=== PATIENT | female | born 1995 | race American Indian/Alaskan Native ===

== ENCOUNTER 2017-08-07 10:26 | Emergency (ER) | payer OTHER ==
[2017-08-07 10:31] VITALS: BMI 27.4
[2017-08-07 10:33] VITALS: TEMP 98
--- NOTE | 2017-08-07 10:44 | C.PDOC ---
History Of Present Illness 22 yr old female presents to the ER with complaints of intermittent back pain for the past 2 days. Patient states the pain is 6/10 and dull to the mid back area. Patient denies trauma, abdominal pain, dysuria, incontinence, weakness or numbness. Time Seen by Provider: 08/07/17 10:38 Chief Complaint (Nursing): Back Pain History Per: Patient History/Exam Limitations: no limitations Onset/Duration Of Symptoms: Days (2) Current Symptoms Are (Timing): Still Present Pain Scale Rating Of: 6 Past Medical History Reviewed: Historical Data, Nursing Documentation, Vital Signs Vital Signs: Last Vital Signs Temp 98 F 08/07/17 10:31 Pulse 78 08/07/17 11:00 Resp 16 08/07/17 11:00 BP 119/78 08/07/17 11:00 Pulse Ox 98 08/07/17 11:00 - Age of Learning Procedures INJECT/INFUSE ELECTROLYT (01/02/14) Family History: States: No Known Family Hx - Social History Hx Tobacco Use: Yes Hx Alcohol Use: No Hx Substance Use: No - Immunization History Hx Tetanus Toxoid Vaccination: No Hx Influenza Vaccination: No Hx Pneumococcal Vaccination: No Review Of Systems Except As Marked, All Systems Reviewed And Found Negative. Gastrointestinal: Negative for: Abdominal Pain Genitourinary: Negative for: Dysuria, Incontinence Musculoskeletal: Positive for: Back Pain Neurological: Negative for: Weakness, Numbness Physical Exam - Physical Exam Appears: Non-toxic, No Acute Distress Skin: Warm, Dry, No Rash Head: Atraumatic, Normacephalic Chest: Symmetrical, No Tenderness Cardiovascular: Rhythm Regular, No Murmur Respiratory: Normal Breath Sounds, No Rales, No Rhonchi, No Stridor, No Wheezing Gastrointestinal/Abdominal: Normal Exam, Soft, No Tenderness, No Guarding, No Rebound Back: Normal Inspection, No CVA Tenderness Extremity: Normal ROM, No Swelling Neurological/Psych: Oriented x3, Normal Speech, Normal Motor ED Course And Treatment O2 Sat by Pulse Oximetry: 100 (RA) Pulse Ox Interpretation: Normal Medical Decision Making Medical Decision Making: PLAN: * Motrin PO * Tylenol PO Disposition Counseled Patient/Family Regarding: Diagnosis, Need For Followup, Rx Given - Disposition Referrals: [facility] [Outside] Disposition: HOME/ ROUTINE Disposition Time: 10:43 Condition: STABLE Prescriptions: Ibuprofen [Motrin] 600 mg PO TID #15 tab Instructions: Back Pain (ED) Forms: General Discharge Instructions, [facility] (Pashto), Work Excuse - POA Present On Arrival: None - Clinical Impression Clinical Impression: Low back pain - Scribe Statement The provider has reviewed the documentation as recorded by the Jackibe Tati Camacho Provider Attestation: All medical record entries made by the Jackibe were at my direction and personally dictated by me. I have reviewed the chart and agree that the record accurately reflects my personal performance of the history, physical exam, medical decision making, and the department course for this patient. I have also personally directed, reviewed, and agree with the discharge instructions and disposition.
[2017-08-07 11:01] VITALS: BP 119/78; PULSE 78; RESP 16
[2017-08-07 13:13] VITALS: O2SAT 100
== END 2017-08-07 11:00 | disposition home or self-care (01) ==
LOC: C.ER 10:26
DX: M54.5 Low back pain (principal)

== ENCOUNTER 2017-12-23 10:08 | Emergency (ER) | payer OTHER ==
[2017-12-23 10:08] VITALS: BMI 27.4
[2017-12-23 10:30] VITALS: RESP 16; TEMP 98
[2017-12-23] MEDS ORDERED: guaiFENesin 100 mg/5 ml Syrup UD PO STA (11:15)
--- NOTE | 2017-12-23 11:16 | C.PDOC ---
History Of Present Illness Jeanne Clarke is a 22 year old female, with no significant past medical history, who presents to the emergency department complaining of cough, nasal congestion, sore throat and body aches onset for x2 days. 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 He denies any shortness of breath, vomiting or diarrhea. No further medical complaints. PMD: None provided. Time Seen by Provider: 12/23/17 11:10 Chief Complaint (Nursing): Cough, Cold, Congestion History Per: Patient History/Exam Limitations: no limitations Onset/Duration Of Symptoms: Days (x2) Current Symptoms Are (Timing): Still Present Sick Contacts (Context): Individual(s) At Work Associated Symptoms: Sore Throat, Cough, Nasal Congestion, Other (body aches) Ear Symptoms: Bilateral: None Past Medical History Reviewed: Historical Data, Nursing Documentation, Vital Signs Vital Signs: Last Vital Signs Temp 98 F 12/23/17 10:26 Pulse 90 12/23/17 10:26 Resp 16 12/23/17 10:26 BP 131/90 12/23/17 10:26 Pulse Ox 98 12/23/17 11:16 - Medical History PMH: No Chronic Diseases Denies: Depression Surgical History: No Surg Hx - [facility] Procedures INJECT/INFUSE ELECTROLYT (01/02/14) Family History: States: Unknown Family Hx - Social History Hx Tobacco Use: Yes Hx Alcohol Use: No Hx Substance Use: No - Immunization History Hx Tetanus Toxoid Vaccination: No Hx Influenza Vaccination: No Hx Pneumococcal Vaccination: No Review Of Systems Constitutional: Positive for: Other (body aches) ENT: Positive for: Nose Congestion, Throat Pain Respiratory: Positive for: Cough. Negative for: Shortness of Breath Gastrointestinal: Negative for: Vomiting, Diarrhea Physical Exam - Physical Exam Appears: Well, No Acute Distress Skin: Normal Color, Warm, Dry Head: Atraumatic, Normacephalic Eye(s): bilateral: Normal Inspection, PERRL, EOMI Ear(s): Bilateral: Normal Nose: Normal Oral Mucosa: Moist Throat: Normal Neck: Normal ROM, Supple Chest: Symmetrical Cardiovascular: Rhythm Regular, No Murmur Respiratory: Normal Breath Sounds, No Wheezing Gastrointestinal/Abdominal: Normal Exam, Soft, No Tenderness, No Guarding, No Rebound Back: Normal Inspection, No CVA Tenderness, No Vertebral Tenderness, No Paraspinal Tenderness Extremity: Normal ROM, No Deformity, No Swelling Neurological/Psych: Oriented x3 Gait: Steady ED Course And Treatment O2 Sat by Pulse Oximetry: 98 (RA) Pulse Ox Interpretation: Normal Medical Decision Making Medical Decision Making: Initial Impression: Influenza Initial Plan: --Motrin tab 600 mg PO --Robitussin 100 mg PO --Tamiflu Cap 75 mg PO --reevaluation typical flu s/s x 2 days start Tamiflu empirically. Disposition Doctor Will See Patient In The: Office Counseled Patient/Family Regarding: Studies Performed, Diagnosis - Disposition Referrals: [facility] [Outside] Disposition: HOME/ ROUTINE Disposition Time: 11:16 Condition: GOOD Additional Instructions: continue Tamiflu 75 mg twice a day for 5 days Continue liberal Dayquil/Nyquil (or equivalent) for symptomatic relief. Remember these symptoms may last 11-14 days No work until afebrile for 24 hours. Prescriptions: Oseltamivir [Tamiflu] 75 mg PO BID #9 cap Instructions: Influenza (ED) Forms: [facility] (Namibian), Work Excuse - Clinical Impression Clinical Impression: Influenza-like illness - Scribe Statement Carlos Perez Provider Attestation: All medical record entries made by the Scribe were at my direction and personally dictated by me. I have reviewed the chart and agree that the record accurately reflects my personal performance of the history, physical exam, medical decision making, and the department course for this patient. I have also personally directed, reviewed, and agree with the discharge instructions and disposition.
[2017-12-23] MEDS ORDERED: guaiFENesin 100 mg/5 ml Syrup UD ONE (11:32)
[2017-12-23 11:41] VITALS: BP 135/84; PULSE 81; O2SAT 97
== END 2017-12-23 11:40 | disposition home or self-care (01) ==
LOC: C.ER 10:08
DX: J11.1 Influenza due to unidentified influenza virus with other respiratory manifestations (principal); Z87.891 Personal history of nicotine dependence

== ENCOUNTER 2018-04-01 23:41 | Emergency (ER) | payer OTHER ==
[2018-04-01 23:41] VITALS: BMI 27.4
[2018-04-02 00:58] LABS: SQUAMOUS EPITHIAL 3 /hpf (0-5); URINE BACTERIA RARE (<OCC); URINE BILIRUBIN NEGATIVE (NEGATIVE); URINE BLOOD 3+ (NEGATIVE); URINE CLARITY Clear (Clear); URINE COLOR Yellow (YELLOW); URINE GLUCOSE (UA) NORMAL (Normal); URINE LEUKOCYTE ESTERASE NEG Leu/uL (Negative); URINE PROTEIN NEGATIVE (NEGATIVE); URINE UROBILINOGEN NORMAL mg/dL (0.2-1.0)
[2018-04-02 00:59] LABS: HCG,QUALITATIVE URINE NEGATIVE (NEGATIVE)
--- NOTE | 2018-04-02 01:18 | C.PDOC ---
History Of Present Illness 22 year old female presents to the ED c/o abdominal pain for the past 4 days. Patient reports she usually has similar pain the first 2 days of her period but this time pain persisted. Patient reports she took 1 Motrin of unknown dosage yesterday and 1 aspirin today with no relief. Patient denies fever, chills, nausea, vomit, dysuria, hematuria, back pain. Time Seen by Provider: 04/02/18 00:23 Chief Complaint (Nursing): Abdominal Pain History Per: Patient History/Exam Limitations: no limitations Onset/Duration Of Symptoms: Days Current Symptoms Are (Timing): Still Present Location Of Pain/Discomfort: Diffuse Radiation Of Pain To:: None Quality Of Discomfort: Cramping Associated Symptoms: denies: Nausea, Vomiting, Diarrhea Exacerbating Factors: None Alleviating Factors: None Recent travel outside of the [place]: No Additional History Per: Patient Abnormal Vaginal Bleeding: No Past Medical History Reviewed: Historical Data, Nursing Documentation, Vital Signs Vital Signs: Last Vital Signs Temp 87.2 F L 04/02/18 01:27 Pulse 81 04/02/18 01:27 Resp 20 04/02/18 01:27 BP 128/70 04/02/18 01:27 Pulse Ox 98 04/02/18 01:27 - Medical History PMH: No Chronic Diseases Denies: Depression Surgical History: No Surg Hx - [facility] Procedures INJECT/INFUSE ELECTROLYT (01/02/14) Family History: States: Unknown Family Hx - Social History Hx Tobacco Use: Yes Hx Alcohol Use: No Hx Substance Use: No - Immunization History Hx Tetanus Toxoid Vaccination: No Hx Influenza Vaccination: No Hx Pneumococcal Vaccination: No Review Of Systems Constitutional: Negative for: Fever, Chills Cardiovascular: Negative for: Chest Pain Respiratory: Negative for: Shortness of Breath Gastrointestinal: Positive for: Abdominal Pain. Negative for: Nausea, Vomiting , Diarrhea Genitourinary: Negative for: Dysuria, Hematuria Musculoskeletal: Negative for: Back Pain Skin: Negative for: Rash Physical Exam - Physical Exam Appears: Non-toxic, No Acute Distress Skin: Normal Color, Warm, Dry Head: Atraumatic, Normacephalic Eye(s): bilateral: Normal Inspection Oral Mucosa: Moist Neck: Normal ROM, Supple Chest: Symmetrical Cardiovascular: Rhythm Regular, No Murmur Respiratory: Normal Breath Sounds, No Rales, No Rhonchi, No Wheezing Gastrointestinal/Abdominal: Soft, No Tenderness, No Guarding, No Rebound Pelvic: Other (Refused) Extremity: Normal ROM, No Tenderness, No Swelling Neurological/Psych: Oriented x3, Normal Speech Gait: Steady ED Course And Treatment O2 Sat by Pulse Oximetry: 100 (ON RA) Pulse Ox Interpretation: Normal Progress Note: Plan: - Motrin 600 mg PO. - UA. - UCG. On reassessment, patient is resting comfortably, and is in no acute distress. Patient was instructed to follow up with physician/clinic in 1-2 days for further evaluation. Disposition Counseled Patient/Family Regarding: Diagnosis, Need For Followup, Rx Given - Disposition [facility] [[facility]] Disposition: HOME/ ROUTINE Disposition Time: 01:16 Condition: STABLE Additional Instructions: Take motrin every 6-8h as needed for pain Follow up with OB/ PART TIME Return to ER if worse Prescriptions: Ibuprofen [Motrin] 600 mg PO Q6H #24 tab Instructions: Menstrual Cramps (DC) Forms: [facility] (Kinyarwanda), Work Excuse - Clinical Impression Clinical Impression: Dysmenorrhea - PA / BARREL W[employer]ER / Resident Statement MD/DO has reviewed & agrees with the documentation as recorded. - Scribe Statement The provider has reviewed the documentation as recorded by the Scribe Valentin Agustin All medical record entries made by the Jackibdavid were at my direction and personally dictated by me. I have reviewed the chart and agree that the record accurately reflects my personal performance of the history, physical exam, medical decision making, and the department course for this patient. I have also personally directed, reviewed, and agree with the discharge instructions and disposition.
[2018-04-02 01:30] VITALS: BP 128/70; PULSE 81; RESP 20; TEMP 87.2
[2018-04-02 01:59] VITALS: O2SAT 100
== END 2018-04-02 01:30 | disposition home or self-care (01) ==
LOC: C.ER 23:41
DX: N94.6 Dysmenorrhea, unspecified (principal); Z72.0 Tobacco use

== ENCOUNTER 2018-07-05 16:23 | Emergency (ER) | payer OTHER ==
[2018-07-05 16:31] VITALS: BMI 28.3
[2018-07-05 16:48] VITALS: BP 119/79; PULSE 100; RESP 20; TEMP 98.6; O2SAT 100
--- NOTE | 2018-07-05 16:56 | C.PDOC ---
History Of Present Illness 23 y/o female presents to ED with c/o having menses since 06/14- 07/03 associated with intermittent headache. Patient reports yesterday she started spotting and today passing clots prompting visit to ED. Patient is sexually active and unsure if . Patient denies abdominal pain, dysuria, back pain, fever, chills or any other complaints at this time. Time Seen by Provider: 07/05/18 16:42 Chief Complaint (Nursing): Female Genitourinary History Per: Patient History/Exam Limitations: no limitations Onset/Duration Of Symptoms: Days Current Symptoms Are (Timing): Still Present Quality Of Discomfort: "Pain" Past Medical History Reviewed: Historical Data, Nursing Documentation, Vital Signs Vital Signs: Last Vital Signs Temp 98.6 F 07/05/18 16:40 Pulse 100 H 07/05/18 16:40 Resp 20 07/05/18 16:40 BP 119/79 07/05/18 16:40 Pulse Ox 100 07/05/18 16:59 - Medical History PMH: No Chronic Diseases Surgical History: No Surg Hx - [facility] Procedures INJECT/INFUSE ELECTROLYT (01/02/14) Family History: States: No Known Family Hx - Social History Hx Tobacco Use: Yes Hx Alcohol Use: No Hx Substance Use: No - Immunization History Hx Tetanus Toxoid Vaccination: No Hx Influenza Vaccination: No Hx Pneumococcal Vaccination: No Review Of Systems Constitutional: Negative for: Fever, Chills Gastrointestinal: Negative for: Nausea, Vomiting, Abdominal Pain Genitourinary: Positive for: Vaginal Bleeding. Negative for: Dysuria Musculoskeletal: Negative for: Back Pain Skin: Negative for: Rash Physical Exam - Physical Exam Appears: Non-toxic, No Acute Distress Skin: Warm, Dry, No Rash Head: Atraumatic, Normacephalic Eye(s): bilateral: Normal Inspection Oral Mucosa: Moist Cardiovascular: Rhythm Regular Respiratory: Normal Breath Sounds, No Rales, No Rhonchi, No Wheezing Gastrointestinal/Abdominal: Soft, No Tenderness, No Guarding, No Rebound Back: No CVA Tenderness Neurological/Psych: Oriented x3, Normal Speech ED Course And Treatment O2 Sat by Pulse Oximetry: 100 (RA) Pulse Ox Interpretation: Normal Disposition - Disposition Referrals: [facility] Rereinaldo, [Non-Staff] - Disposition: HOME/ ROUTINE Disposition Time: 17:30 Condition: GOOD Additional Instructions: DAMEON SAMAYOA, thank you for letting us take care of you today. The emergency medical care you received today was directed at your acute symptoms. If you were prescribed any medication, please fill it and take as directed. It may take several days for your symptoms to resolve. Return to the Emergency Department if your symptoms worsen, do not improve, or if you have any other problems. Please contact your doctor or call one of the physicians/clinics you have been referred to that are listed on the Patient Visit Information form that is included in your discharge packet. Bring any paperwork you were given at discharge with you along with any medications you are taking to your follow up visit. Our treatment cannot replace ongoing medical care by a primary care provider outside of the emergency department. Thank you for allowing the [facility] team to be part of your care today. Follow up with your [facility] [employer] [facility] doctor this week for re-evaluation and further management. Instructions: Absent or Irregular Periods Forms: [facility] (Uzbek) - Clinical Impression Clinical Impression: Dysmenorrhea - Scribe Statement The provider has reviewed the documentation as recorded by the Adore Nunez All medical record entries made by the Adore were at my direction and personally dictated by me. I have reviewed the chart and agree that the record accurately reflects my personal performance of the history, physical exam, medical decision making, and the department course for this patient. I have also personally directed, reviewed, and agree with the discharge instructions and disposition.
[2018-07-05 17:03] LABS: HCG,QUALITATIVE URINE NEGATIVE (NEGATIVE)
[2018-07-05 17:08] LABS: SQUAMOUS EPITHIAL 6 /hpf (0-5); URINE BACTERIA OCC (<OCC); URINE BILIRUBIN NEGATIVE (NEGATIVE); URINE BLOOD 1+ (NEGATIVE); URINE CLARITY Hazy (Clear); URINE COLOR Yellow (YELLOW); URINE GLUCOSE (UA) NORMAL (Normal); URINE LEUKOCYTE ESTERASE 1+ Leu/uL (Negative); URINE PROTEIN NEGATIVE (NEGATIVE); URINE UROBILINOGEN NORMAL mg/dL (0.2-1.0)
== END 2018-07-05 18:00 | disposition home or self-care (01) ==
LOC: C.ER 16:23
DX: N94.6 Dysmenorrhea, unspecified (principal)